=== PATIENT | female | born 1985 | race Caucasian/White ===

== ENCOUNTER → 2019-10-22 | Outpatient (CLI) | payer BC ==
[2019-10-22 09:42] LABS: POTASSIUM 4.2 mmol/L (3.6-5.0)
== END ==
LOC: OD 08:30
PROVIDERS: ATTEND Dermatology
DX: L70.8 Other acne (principal)
CPT/HCPCS: 36415; 84132; 84295

== ENCOUNTER → 2019-11-26 | Outpatient (CLI) | payer BC ==
[2019-11-26 10:20] LABS: POTASSIUM 4.3 mmol/L (3.6-5.0)
== END ==
LOC: OD 09:09
PROVIDERS: ATTEND Dermatology
DX: L70.8 Other acne (principal)
CPT/HCPCS: 36415; 84132; 84295